=== PATIENT | female | born 1990 | race Caucasian/White ===

== ENCOUNTER 2018-05-21 23:08 | Inpatient (IN) | payer BC ==
[~2018-05-21] VITALS: Ht 154.9 cm; Wt 79.5 kg
[2018-05-21] MEDS ORDERED: OXYTOCIN 30U/ 0.9% NaCL 500ML 500 ML IV PRN (23:16)
[2018-05-21] MEDS ORDERED: D5%-LACTATED RINGERS 1,000 ML IV SCH (23:16)
[2018-05-21] MEDS ORDERED: NEWBORN KIT ONE (23:16)
[2018-05-21] MEDS ORDERED: OXYTOCIN 30U/ 0.9% NaCL 500ML 500 ML IV ONE (23:16)
[2018-05-21] MEDS ORDERED: LACTATED RINGERS 1,000 ML IV SCH (23:16)
[2018-05-21] MEDS ORDERED: LIDOCAINE 1%, 20ML ONE (23:16)
[2018-05-21] MEDS ORDERED: MISOPROSTOL 200 MCG TABLET ONE (23:16)
[2018-05-21] MEDS ORDERED: OXYTOCIN 30U/ 0.9% NaCL 500ML 500 ML ONE (23:17)
[2018-05-21 23:24] VITALS: BP 132/77
[2018-05-21] MEDS ORDERED: FENTANYL PF 100 MCG/2ML IVPush PRN (23:30)
[2018-05-21] MEDS ORDERED: FENTANYL PF 100 MCG/2ML IV PRN (23:30)
[2018-05-21] MEDS ORDERED: METOCLOPRAMIDE 5 MG/ML, 2ML IVPush PRN (23:30)
[2018-05-21] MEDS ORDERED: SODIUM CITRATE/CITRIC ACID 30 ML UDC PO PRN (23:30)
[2018-05-21] MEDS ORDERED: SODIUM CITRATE/CITRIC ACID 30 ML UDC ONE (23:50)
[2018-05-21] MEDS ORDERED: METOCLOPRAMIDE 5 MG/ML, 2ML ONE (23:50)
[2018-05-21 23:56] LABS: BASOPHILS # (AUTO) 0.11 x10^3/uL (0-0.1); BASOPHILS % (AUTO) 1 % (0-1); EOSINOPHILS % (AUTO) 0 % (1-7); LYMPHOCYTES % (AUTO) 4 % (22-44); MD NO; MEAN CORPUSCULAR HEMOGLOBIN 30.6 pg (27.0-34.8); MEAN CORPUSCULAR HGB CONC 33.8 g/dL (32.4-35.8); MEAN CORPUSCULAR VOLUME 90.7 fL (80-100); MEAN PLATELET VOLUME 11.2 fL (7.4-10.4); MONOCYTES # (AUTO) 0.85 x10^3/uL (0.2-0.8); MONOCYTES % (AUTO) 5 % (2-9); NEUTROPHILS # (AUTO) 14.49 x10^3/uL (1.8-6.8); NEUTROPHILS % (AUTO) 90 % (42-75); PLATELET COUNT 127 x10^3/uL (130-400); RED BLOOD COUNT 4.15 x10^6/uL (3.82-5.3); RED CELL DISTRIBUTION WIDTH 14.7 % (9.6-15.2)
[2018-05-22] MEDS ORDERED: OXYTOCIN 30U/ 0.9% NaCL 500ML 500 ML IV SCH (00:58)
[2018-05-22] MEDS: OXYTOCIN 30U/ 0.9% NaCL 500ML 500 ML IV SCH ×3 (00:58→19:34)
[2018-05-22] MEDS ORDERED: OXYcodone/APAP 5/325MG TABLET PO PRN ×2 (01:00)
[2018-05-22] MEDS ORDERED: OXYTOCIN 10 UNITS/ML, 1ML IM PRN (01:00)
[2018-05-22] MEDS ORDERED: METOCLOPRAMIDE 5 MG/ML, 2ML IV PRN (01:00)
[2018-05-22] MEDS ORDERED: METHYLERGONOVINE 0.2 MG/ML IM PRN (01:00)
[2018-05-22] MEDS ORDERED: MAGNESIUM HYDROXIDE 8%, 30ML UDC PO PRN (01:00)
[2018-05-22] MEDS ORDERED: ACETAMINOPHEN 325 MG TABLET PO PRN (01:00)
[2018-05-22] MEDS ORDERED: DOCUSATE 100 MG CAPSULE PO PRN (01:00)
[2018-05-22] MEDS ORDERED: CALCIUM CARBONATE 500 MG TAB.CHEW PO PRN (01:00)
[2018-05-22] MEDS ORDERED: DIPH,PERTUSS(ACELL),TET VAC/PF NC IM-VACC PRN (01:00)
[2018-05-22] MEDS ORDERED: ONDANSETRON 2MG/ML, 2ML IV PRN (01:00)
[2018-05-22] MEDS ORDERED: IBUPROFEN 800 MG TABLET PO PRN (01:00)
[2018-05-22] MEDS ORDERED: NEWBORN KIT ONE (01:19)
[2018-05-22 02:50] VITALS: BP 96/64
[2018-05-22 08:00] VITALS: BP 103/65
[2018-05-22 09:15] LABS: MEAN CORPUSCULAR HGB CONC 32.6 g/dL (32.4-35.8); MEAN PLATELET VOLUME 11.9 fL (7.4-10.4); PLATELET COUNT 128 x10^3/uL (130-400); RED BLOOD COUNT 3.74 x10^6/uL (3.82-5.3); RED CELL DISTRIBUTION WIDTH 15.5 % (9.6-15.2)
[2018-05-22] MEDS: PRENATAL VIT/IRON/FA 1 EACH TABLET PO SCH (09:52)
[2018-05-22 10:08] LABS: BASOPHILS % (AUTO) 0 % (0-1); EOSINOPHILS % (AUTO) 0 % (1-7); LYMPHOCYTES # (AUTO) 0.93 x10^3/uL (1-3.4); LYMPHOCYTES % (AUTO) 7 % (22-44); MD SCAN; MONOCYTES # (AUTO) 1.18 x10^3/uL (0.2-0.8); MONOCYTES % (AUTO) 8 % (2-9); NEUTROPHILS # (AUTO) 12.14 x10^3/uL (1.8-6.8); NEUTROPHILS % (AUTO) 85 % (42-75)
[2018-05-22 13:08] VITALS: BP 105/61
[2018-05-22 16:00] VITALS: BP 96/63
[2018-05-22 20:21] VITALS: BP 102/66
[2018-05-23 00:30] VITALS: BP 99/66
[2018-05-23] MEDS: OXYTOCIN 30U/ 0.9% NaCL 500ML 500 ML IV SCH (03:53)
[2018-05-23 08:00] VITALS: BP 114/73
[2018-05-23] MEDS: PRENATAL VIT/IRON/FA 1 EACH TABLET PO SCH (08:33)
== END 2018-05-23 12:55 | disposition home or self-care (01) | DRG 807 ==
LOC: LDOP 23:08 → LDIP 23:20 → 2NW 05-22 02:25
PROVIDERS: ADMIT Obstetrics & Gynecology; ATTEND Obstetrics & Gynecology
PROC: 10E0XZZ Delivery of Products of Conception, External Approach (ICD-10-PCS; principal; 2018-05-21)
PROC: 0KQM0ZZ Repair Perineum Muscle, Open Approach (ICD-10-PCS; 2018-05-21)
PROC: 0W8NXZZ Division of Female Perineum, External Approach (ICD-10-PCS; 2018-05-21)
DX: O48.0 Post-term pregnancy (principal); Z37.0 Single live birth; O69.1XX0 Labor and delivery complicated by cord around neck, with compression, not applicable or unspecified; O76 Abnormality in fetal heart rate and rhythm complicating labor and delivery; O63.1 Prolonged second stage (of labor); O70.1 Second degree perineal laceration during delivery; Z3A.41 41 weeks gestation of pregnancy
CPT/HCPCS: 36415; 85025; 86850; 86900; G0378; J2590; J7120; J7121